=== PATIENT | male | born 1980 | race Caucasian/White ===

== ENCOUNTER → 2017-02-18 | Outpatient (CLI) | payer OTHER ==
[~2017-02-18] MED LIST: CELEXA20 MG PO; DOXYCYCLINE 10100 MG PO; PROVENTIL0.09 MG/A1 IH; ZOFRAN ODT4 MG PO; [UNRECOGNIZED DRUG - OTHER] PO
== END ==
LOC: COL.RAD 09:18
DX: R51 Headache (principal)
CPT/HCPCS: A9585

== ENCOUNTER 2019-02-25 00:39 | Emergency (ER) | payer SELFPAY ==
[~2019-02-25] VITALS: Ht 180.3 cm; Wt 72.7 kg
[2019-02-25 00:44] VITALS: BP 132/99; TEMP 98.2
[2019-02-25 02:08] VITALS: PULSE 97
== END 2019-02-25 02:07 | disposition home or self-care (01) ==
LOC: COL.ER 00:39
DX: S33.5XXA Sprain of ligaments of lumbar spine, initial encounter (principal); W01.0XXA Fall on same level from slipping, tripping and stumbling without subsequent striking against object, initial encounter